=== PATIENT | male | born 1990 | race Caucasian/White ===

== ENCOUNTER 2016-11-21 15:54 | Emergency (ER) | payer SELFPAY ==
[~2016-11-21] VITALS: Ht 160 cm; Wt 44.5 kg
[2016-11-21 17:07] VITALS: BP 130/80
[2016-11-21] MEDS ORDERED: ACETAMINOPHEN 325 MG TABLET PO ONE (17:15)
[2016-11-21] MEDS ORDERED: PERTUSS(ACELL),DIPH,TET VAC/PF 0.5 ML VIAL IM ONE (17:15)
== END 2016-11-21 18:31 | disposition home or self-care (01) ==
LOC: EMS 15:56
DX: S01.112A Laceration without foreign body of left eyelid and periocular area, initial encounter (principal); F17.210 Nicotine dependence, cigarettes, uncomplicated; Y04.0XXA Assault by unarmed brawl or fight, initial encounter; Y93.89 Activity, other specified; Y92.9 Unspecified place or not applicable; Y99.9 Unspecified external cause status
CPT/HCPCS: 70450; 90471; 90715; 99284